=== PATIENT | female | born 1985 | race Caucasian/White ===

== ENCOUNTER 2019-06-17 16:44 | Emergency (ER) | payer OTHER, SELFPAY ==
[2019-06-17 17:20] VITALS: BP 114/61; PULSE 61; RESP 16; TEMP 36.6; O2SAT 98
--- NOTE | 2019-06-17 17:55 | ED.URI ---
HPI - URI/Sore Throat General Stated Complaint: Cough/SOB/Chest Congestion Time Seen by Provider: 06/17/19 17:55 Source: patient History of Present Illness HPI Narrative: Patient presents with a cough congestion. Patient is a pack-a-day smoker for many years and states she has a history of COPD. Patient denies any shortness of breath no chest pain at present. Patient states she has been taking Mucinex for her symptoms with little relief. MD elicited complaint: cough Related Data Allergies Allergy/AdvReac Type Severity Reaction Status Date / Time sulfamethoxazole Allergy Unknown THROAT Verified 01/30/19 10:34 CLOSES, HIVES trimethoprim Allergy Unknown THROAT Verified 01/30/19 10:34 CLOSESJOSE Review of Systems Review of Systems: Narrative: CONSTITUTIONAL: Denies chills, or sweats. Reports fever and generalized body aches EYES: Denies visual changes, redness, or discharge. ENT: Denies otalgia. Reports nasal congestion runny nose and sore throat CARDIOVASCULAR: Denies chest pain, palpitations, or edema. RESPIRATORY: Denies dyspnea. Reports occasional cough GASTROINTESTINAL: Denies abdominal pain, nausea, vomiting, or diarrhea. GENITOURINARY: Denies dysuria or hematuria. SKIN: Denies rash or itching. MUSCULOSKELETAL: Denies back pain, joint pain, or myalgia. Reports generalized body aches NEUROLOGIC: Denies headache, numbness, or weakness. PSYCHIATRIC: Denies anxiety or depression. All systems reviewed & are unremarkable except as noted in HPI and below PMFSH Comments At time of signature, agree with nursing past medical, surgical, social and family history. There is no relevant family history pertinent to the presenting complaint Exam Narrative: Exam Narrative: GENERAL APPEARANCE: The patient is a well-developed, well-nourished , in no acute distress. SKIN: Skin is warm and dry without erythema, swelling or exudate. There is good turgor. No tenting. HEAD: Atraumatic. Normocephalic. No temporal or scalp tenderness. EYES: Moist and bright. Sclera and conjunctivae normal. No discharge. PERRLA. Extraocular motions intact. Gross visual acuity intact. EARS: Pinna is normal shape and contour. Clear external auditory canals. TM pearly subramanian with good cone of light, no erythema or suppuration. Bilateral cerumen noted no gross hearing deficit. NOSE: pink, moist mucosa with good air movement. Clear rhinorrhea without nasal flaring. Septum midline. Mouth: moist mucous membranes. THROAT; mild erythema noted to posterior oropharynx with moderate postnasal drainage. Without exudate or ulceration.. Uvula midline. Normal movement of soft palate. NECK: Supple and nontender with full range of motion without discomfort. No meningeal signs. LUNGS: Equal and bilateral breath sounds without wheezes, rales or rhonchi. CHEST: The chest wall is without retractions or use of accessory muscles. HEART: Has a regular rate and rhythm without murmur, gallops, click or rub. ABDOMEN: Soft, nontender with positive active bowel sounds. No rebound tenderness. EXTREMITIES: Without cyanosis, clubbing or edema. Equal 2+ distal pulses and 2 second capillary refill noted. NEUROLOGIC: alert, active, developmentally normal for age. The patient moves all extremities with normal muscle strength. Normal muscle tone is noted. Normal coordination is noted. NO focal neurological findings noted. Course Vital Signs Vital signs: Vital Signs Temperature 36.6 C 06/17/19 17:20 Pulse Rate 61 06/17/19 17:20 Respiratory Rate 16 06/17/19 17:20 Blood Pressure 114/61 06/17/19 17:20 Pulse Oximetry 98 06/17/19 17:20 Temperature 36.6 C 06/17/19 17:20 Pulse Rate 61 06/17/19 17:20 Respiratory Rate 16 06/17/19 17:20 Blood Pressure 114/61 06/17/19 17:20 Pulse Oximetry 98 06/17/19 17:20 MDM - URI/Sore Throat Differential Diagnosis Differential diagnosis: Likely upper respiratory infection, otitis media, viral infection, bronchit
== END 2019-06-17 18:17 | disposition home or self-care (01) ==
PROVIDERS: Emergency Provider Nurse Practitioner Family
DX: J40 Bronchitis, not specified as acute or chronic (principal); F17.200 Nicotine dependence, unspecified, uncomplicated; J44.9 Chronic obstructive pulmonary disease, unspecified; F41.9 Anxiety disorder, unspecified; F32.9 Major depressive disorder, single episode, unspecified
CPT/HCPCS: 99213; G0463

== ENCOUNTER 2019-10-16 15:25 | Emergency (ER) | payer OTHER, SELFPAY ==
[2019-10-16 15:33] VITALS: BP 132/66; PULSE 65; RESP 18; TEMP 36.9; O2SAT 99
--- NOTE | 2019-10-16 15:53 | ED.URI ---
HPI - URI/Sore Throat General Chief Complaint: Upper Respiratory Infection Stated Complaint: ear pain/pressure/scab and bleeding Time Seen by Provider: 10/16/19 15:43 Source: patient and RN notes reviewed Mode of arrival: ambulatory Limitations: no limitations History of Present Illness HPI Narrative: Patient presents today complaining of pain to bilateral ears, right greater than left for the past 2 weeks. States the inside of her ears have been itching and she has been scratching them with her pinky fingernail in the ear canal. States a scab did come out of the ear canal few days ago. She also reports muffled hearing bilaterally. She is also complaining of cough for the last week with wheezing. She currently rates her pain 5/10. She has been using ibuprofen and steroid nasal spray. States she has been told that she may have, early signs of COPD. MD elicited complaint: cough and other (Ear pain) Related Data Home Medications Medication Instructions Recorded Confirmed alprazolam 06/17/19 quetiapine 06/17/19 escitalopram oxalate mg 10/16/19 10/16/19 linaclotide [Linzess] mcg 10/16/19 pregabalin 10/16/19 Allergies Allergy/AdvReac Type Severity Reaction Status Date / Time sulfamethoxazole Allergy Unknown THROAT Verified 10/16/19 15:42 JOSE WALKER trimethoprim Allergy Unknown THROAT Verified 10/16/19 15:42 OJSE WALKER Review of Systems Review of Systems: Narrative: CONSTITUTIONAL: Denies body aches, fever, chills, or sweats. EYES: Denies visual changes, redness, or discharge. ENT: Denies rhinorrhea, congestion, sore throat. + Bilateral ear pain CARDIOVASCULAR: Denies chest pain, palpitations, or edema. RESPIRATORY: + Cough, wheezing GASTROINTESTINAL: Denies abdominal pain, nausea, vomiting, or diarrhea. GENITOURINARY: Denies dysuria or hematuria. SKIN: Denies rash, itching, or wounds. MUSCULOSKELETAL: Denies back pain, joint pain, or myalgia. NEUROLOGIC: Denies headache, numbness, tingling, or weakness. PSYCH: Denies depression or anxiety. [facility] Social History Social History Gender identity (if verbalized by the patient): Female Comments At time of signature, I have reviewed and agree with nursing past medical, surgical, social and family history unless otherwise noted. Please see nursing chart for further information. There is no relevant family history pertinent to the presenting complaint Exam Narrative: Exam Narrative: GENERAL: Well-appearing, well-nourished, and in no acute distress. HEAD: Normocephalic, atraumatic. EYES: EOMI. No redness or drainage. Conjunctivae normal. ENT: Mucous membranes pink and moist. Nares clear. No rhinorrhea. TMs normal bilaterally. Patient has 2 small sores in either ear canal, consistent with either side of her pinky fingernail scratching the inside of the ear canal. No scabbing or bleeding noted. Small amount of erythema surrounding all the sores. Throat normal. Uvula midline. NECK: Normal AROM. Supple. No lymphadenopathy. CHEST: No respiratory distress. Inspiratory wheezing in the bilateral upper lobes HEART: Regular rate and rhythm. No murmur appreciated. Normal peripheral pulses. MUSCULOSKELETAL: No bony tenderness. EXTREMITIES: Normal range of motion. No edema. SKIN: Warm, dry, no rash. Capillary refill normal. Normal skin turgor. NEURO: No focal deficits. Alert and oriented x3. Gait steady. PSYCH: Normal affect. No signs of depression or anxiety. Course Vital Signs Vital signs: Vital Signs Temperature 98.5 F 10/16/19 15:33 Pulse Rate 65 10/16/19 15:33 Respiratory Rate 18 10/16/19 15:33 Blood Pressure 132/66 10/16/19 15:33 Pulse Oximetry 99 10/16/19 15:33 Temperature 98.5 F 10/16/19 15:33 Pulse Rate 65 10/16/19 15:33 Respiratory Rate 18 10/16/19 15:33 Blood Pressure 132/66 10/16/19 15:33 Pulse Oximetry 99 10/16/19 15:33 Revie
== END 2019-10-16 15:59 | disposition home or self-care (01) ==
PROVIDERS: Emergency Provider Nurse Practitioner; PCP Family Medicine
DX: J40 Bronchitis, not specified as acute or chronic (principal); S01.301A Unspecified open wound of right ear, initial encounter; S01.302A Unspecified open wound of left ear, initial encounter; W26.8XXA Contact with other sharp object(s), not elsewhere classified, initial encounter; J44.9 Chronic obstructive pulmonary disease, unspecified
CPT/HCPCS: 99213; G0463

== ENCOUNTER 2020-03-17 16:24 | Emergency (ER) | payer OTHER, SELFPAY ==
[2020-03-17 16:28] VITALS: BP 127/59; PULSE 67; RESP 14; TEMP 36.8; O2SAT 99
--- NOTE | 2020-03-17 17:21 | ED.URI ---
HPI - URI/Sore Throat General Chief Complaint: Upper Respiratory Infection Stated Complaint: sore throat/sores in mouth Time Seen by Provider: 03/17/20 17:09 Source: patient and RN notes reviewed Mode of arrival: ambulatory Limitations: no limitations History of Present Illness HPI Narrative: Patient presents today complaining of a 3-day history of sore throat, painful bumps inside the mouth, rhinorrhea, cough, headache, nasal congestion. Denies fever, vomiting. She currently rates her pain 6/10 and has been taking ibuprofen with relief. States kids have recently been sick with sore throat and runny nose, but nothing specifically diagnosed. No known COVID-19 exposure. MD elicited complaint: sore throat Related Data Home Medications Medication Instructions Recorded Confirmed alprazolam 1 mg PO BID 06/17/19 03/17/20 quetiapine 100 mg PO DAILY 06/17/19 03/17/20 linaclotide [Linzess] 145 mcg PO DAILY 10/16/19 03/17/20 pregabalin 150 mg PO BID 10/16/19 03/17/20 Allergies Allergy/AdvReac Type Severity Reaction Status Date / Time sulfamethoxazole Allergy Unknown THROAT Verified 03/17/20 16:51 CLOSES, HIVES trimethoprim Allergy Unknown THROAT Verified 03/17/20 16:51 CLOSES, МАРИНАES Review of Systems Review of Systems: Narrative: CONSTITUTIONAL: Denies body aches, fever, chills, or sweats. EYES: Denies visual changes, redness, or discharge. ENT: Denies otalgia.+ Sore throat, oral lesions, rhinorrhea, nasal congestion CARDIOVASCULAR: Denies chest pain, palpitations, or edema. RESPIRATORY: Denies dyspnea.+ Cough GASTROINTESTINAL: Denies abdominal pain, vomiting, or diarrhea. + Nausea GENITOURINARY: Denies dysuria or hematuria. SKIN: Denies rash, itching, or wounds. MUSCULOSKELETAL: Denies back pain, joint pain, or myalgia. NEUROLOGIC: Denies numbness, tingling, or weakness. + Headache PSYCH: Denies depression or anxiety. [facility] Social History Social History Gender identity (if verbalized by the patient): Female Comments At time of signature, I have reviewed and agree with nursing past medical, surgical, social and family history unless otherwise noted. Please see nursing chart for further information. There is no relevant family history pertinent to the presenting complaint Exam Narrative: Exam Narrative: GENERAL: Well-appearing, well-nourished, and in no acute distress. HEAD: Normocephalic, atraumatic. EYES: EOMI. No redness or drainage. Conjunctivae normal. ENT: Mucous membranes pink and moist. Nares clear. No rhinorrhea. TMs normal bilaterally. Throat without erythema or edema. No exudate. Sores in the mucosa are pinpoint white pustules-not surrounded with erythema. No sores on the tongue noted. Uvula midline. NECK: Normal AROM. Supple. No lymphadenopathy. CHEST: No respiratory distress. Clear to auscultation. HEART: Regular rate and rhythm. No murmur appreciated. Normal peripheral pulses. EXTREMITIES: Normal range of motion. No edema. SKIN: Warm, dry, no rash. Capillary refill normal. Normal skin turgor. NEURO: No focal deficits. Alert and oriented x3. Gait steady. PSYCH: Normal affect. No signs of depression or anxiety. Course Course Emergency Course: Due to recent exposure and symptoms, patient may have a possible COVID-19 infection. Signs and symptoms discussed with patient. Patient educated to self-isolate in a room in his/her home away from others they live with. Use mask if available. Patient was advised not to leave house for any reason ? Self-treatment discussed including Tylenol for fever, pain, or myalgia, and cough cold medications for symptoms. Patient to check temperature daily and monitor for symptoms of respiratory distress. Patient should check in daily with primary care office/system via phone/virtual platform ? Nature of the disease to cause severe respiratory distress discussed with the patient. If
== END 2020-03-17 17:34 | disposition home or self-care (01) ==
PROVIDERS: Emergency Provider Nurse Practitioner; PCP Nurse Practitioner Family
DX: J06.9 Acute upper respiratory infection, unspecified (principal); Z20.828 Contact with and (suspected) exposure to other viral communicable diseases; J44.9 Chronic obstructive pulmonary disease, unspecified; M79.7 Fibromyalgia; F41.9 Anxiety disorder, unspecified; F32.9 Major depressive disorder, single episode, unspecified
CPT/HCPCS: 87081; 87880; 99213; G0463

== ENCOUNTER 2020-03-18 07:57 | Outpatient (NON) | payer OTHER, SELFPAY ==
[2020-03-18 20:46] LABS: SARS-CoV-2 RNA PCR Negative
== END 2020-03-18 07:58 ==
LOC: ANHCOVIDDT 07:58
PROVIDERS: PCP Nurse Practitioner Family; Visit Provider Nurse Practitioner
DX: J06.9 Acute upper respiratory infection, unspecified (principal); Z20.828 Contact with and (suspected) exposure to other viral communicable diseases
CPT/HCPCS: 87635; C9803; U0003

== ENCOUNTER 2020-10-18 16:13 | Emergency (ER) | payer OTHER, SELFPAY ==
[2020-10-18 16:21] VITALS: BP 133/56; PULSE 87; RESP 16; TEMP 37.4; O2SAT 99
[2020-10-18 16:42] VITALS: BP 133/56; PULSE 87; RESP 16; TEMP 37.4; O2SAT 99
--- NOTE | 2020-10-18 16:49 | ED.LOWEXIN ---
HPI - Extremity Injury (Lower) General Chief Complaint: Extremity Injury, Lower Stated Complaint: Pain and swelling on both Legs and Knees Time Seen by Provider: 10/18/20 16:49 Source: patient Mode of arrival: ambulatory Limitations: no limitations History of Present Illness HPI Narrative: Rosemarie Hinojosa is a 34 yo female with a PMH of intermittent leg edema, fibromyalgia, IBS-C, ulcer, chronic back pain, early COPD, depression and anxiety, [facility] 2+ edema both legs complaining of ankle and knee pain due to the swelling. She must lye in the recliner to sleep due to coughing, has some shortness of breath( which may be due more to deconditioning). She spoke with doctor's office last week who told her to take additional tablet of HCTZ as needed to decrease swelling in her legs which has had no effect Related Data Home Medications Medication Instructions Recorded Confirmed linaclotide [Linzess] 145 mcg PO DAILY 10/16/19 10/18/20 pregabalin 150 mg PO BID 10/16/19 10/18/20 alprazolam 1 mg PO BID PRN 10/18/20 10/18/20 aripiprazole 2.5 mg PO DAILY 10/18/20 10/18/20 budesonide-formoterol [Symbicort] 2 puff INHALATION Q12H 10/18/20 10/18/20 cyclobenzaprine 10 mg PO TID 10/18/20 10/18/20 hydrochlorothiazide 25 mg PO DAILY PRN 10/18/20 10/18/20 lamotrigine 150 mg PO DAILY 10/18/20 10/18/20 omeprazole 40 mg PO DAILY 10/18/20 10/18/20 sertraline 100 mg PO DAILY 10/18/20 10/18/20 trazodone 100 mg PO HS 10/18/20 10/18/20 Allergies Allergy/AdvReac Type Severity Reaction Status Date / Time sulfamethoxazole Allergy Unknown THROAT Verified 10/18/20 16:34 CLOSES, HIVES trimethoprim Allergy Unknown THROAT Verified 10/18/20 16:34 CLOSESJOSE Review of Systems Review of Systems: Narrative: CONSTITUTIONAL: Denies fever, chills, sweats. EYES: Denies visual changes, redness, discharge. ENT: Denies rhinorrhea, congestion, sore throat, otalgia. CARDIOVASCULAR: Denies chest pain, palpitations, edema. RESPIRATORY: Denies dyspnea, wheezing, cough GASTROINTESTINAL: Denies abdominal pain, nausea, vomiting, diarrhea. GENITOURINARY: Denies dysuria, hematuria, abnormal discharge SKIN: Denies rash or itching. NEUROLOGIC: Denies numbness, or focal weakness. PSYCHIATRIC: Denies anxiety or depression. Bilateral leg swelling PMFSH Past Medical History Medical History Chronic back pain COPD (chronic obstructive pulmonary disease) Fibromyalgia IBS (irritable colon syndrome) Tobacco abuse Social History Social History Smoking packs per day: 0.6 Smoking cigarettes per day: 12.0 Smoking status: Current every day smoker Alcohol intake: former Gender identity (if verbalized by the patient): Female Comments At time of signature, I agree with nursing past medical, surgical, social and family history. There is no relevant family history pertinent to the presenting complaint. Exam Narrative: Exam Narrative: GENERAL: This is a well-nourished, well-developed patient, in mild distress. HEAD: normocephalic, atraumatic. EYES: Sclera clear/white. Vision is grossly intact. EARS: External ears normal, . Hearing grossly intact. NOSE: External nose normal without nasal discharge, nares without redness, no rhinorrhea. THROAT: Mucous membranes moist, NECK: Neck supple, CARDIOVASCULAR: Regular rate and rhythm without murmurs, gallops, or rubs. RESPIRATORY: CDiminished to auscultation. Breath sounds equal bilaterally. No wheezes, rales, or rhonchi. GASTROINTESTINAL: Abdomen soft, non-tender, SKIN: warm, intact with no suspicious lesions or rash, good texture and turgor. NEURO: awake, alert, and oriented to person, place and time. There were no obvious focal neurologic abnormalities. Steady gait EXTREMITIES: Normal range of motion. Bilateral 2+ leg edema from toes up to knees BACK: Nontender without def
== END 2020-10-18 17:05 | disposition short-term general hospital (02) ==
LOC: EXPBETH 16:18
PROVIDERS: Emergency Provider Nurse Practitioner
DX: J44.9 Chronic obstructive pulmonary disease, unspecified (principal); M79.7 Fibromyalgia; R60.0 Localized edema
CPT/HCPCS: 99212; G0463